=== PATIENT | male | born 1960 | race Caucasian/White ===

== ENCOUNTER 2019-12-28 18:25 | Emergency (ER) | payer OTHER ==
[~2019-12-28] VITALS: Ht 177.8 cm; Wt 104.3 kg
[~2019-12-28 18:25] MED LIST: ASPIR-LOW81 MG PO; CEPHALEXIN500 M1 PO; COREG12.5 MG PO; FLEXERIL5 MG PO; LIPITOR40 MG PO; LISINOPRIL2.5 MG PO; LISINOPRIL5 MG PO; MACROBID100 M1 PO; MOTRIN800 MG PO; PEPCID20 MG PO; PEPCID40 MG PO; PLAVIX75 M1 PO; PRILOSEC40 MG PO; TAMIFLU 75MG CA75 MG PO
[2019-12-28 19:46] LABS: BASO % 0.5 % (0.0-1.0); EOS % 0.4 % (1.0-4.0); HEMATOCRIT 40.7 % (42.0-52.0); HEMOGLOBIN 13.2 g/dl (14.0-18.0); LYMPH # 0.5 10*3/uL (1.3-4.4); LYMPH % 6.9 % (27.0-41.0); MEAN CELL VOLUME 85.7 fl (80.0-94.0); MEAN CORPUSCULAR HGB 27.8 pg (27.0-31.0); MEAN CORPUSCULAR HGB CONC 32.4 g/dl (33.0-37.0); MEAN PLATELET VOLUME 10.1 fl (9.6-12.3); MONO # 1.3 10*3/uL (0.1-1.0); NEUT # 5.7 10*3/uL (2.3-7.9); NEUT % 74.9 % (47.0-73.0); PLATELET COUNT AUTOMATED 333 10*3/uL (130-400); RED BLOOD COUNT 4.75 10*6/uL (4.50-5.90); RED CELL DISTRI WIDTH 13.2 % (0-14.5); WHITE BLOOD COUNT 7.7 10*3/uL (4.8-10.8)
[2019-12-28 20:02] LABS: ALBUMIN 3.1 gm/dl (3.1-4.5); ALKALINE PHOSPHATASE 78 U/L (45-117); BUN 15 mg/dl (7-24); CHLORIDE 103 mmol/L (98-107); CREATININE 1.08 mg/dL (0.70-1.30); POTASSIUM 4.3 mmol/L (3.5-5.1); SGOT/AST 17 IU/L (3-35); SGPT/ALT 24 U/L (12-78); SODIUM 134 mmol/L (136-145); TOTAL PROTEIN 6.7 gm/dL (6.4-8.2)
[2019-12-28 20:05] LABS: TROPONIN I < 0.015 ng/ml (<0.045)
[2019-12-28] MEDS ORDERED: ZITHROMAX250 MG PO (23:59)
== END 2019-12-29 01:41 | disposition home or self-care (01) ==
LOC: ED 18:25
PROVIDERS: Emergency Medicine Emergency Medical Services
DX: J18.9 Pneumonia, unspecified organism (principal); J10.1 Influenza due to other identified influenza virus with other respiratory manifestations; I25.2 Old myocardial infarction; M54.6 Pain in thoracic spine; K21.9 Gastro-esophageal reflux disease without esophagitis; E78.5 Hyperlipidemia, unspecified; Z79.899 Other long term (current) drug therapy; Z79.82 Long term (current) use of aspirin

== ENCOUNTER 2020-11-08 11:00 | Emergency (ER) | payer OTHER ==
[~2020-11-08 11:00] MED LIST changes: +ZITHROMAX250 MG PO
[2020-11-08 11:50] LABS: HEMATOCRIT 41.4 % (42.0-52.0); MEAN CELL VOLUME 83.8 fl (80.0-94.0); MEAN CORPUSCULAR HGB 27.7 pg (27.0-31.0); MEAN CORPUSCULAR HGB CONC 33.1 g/dl (33.0-37.0); MEAN PLATELET VOLUME 10.2 fl (9.6-12.3); PLATELET COUNT AUTOMATED 312 10*3/uL (130-400); RED BLOOD COUNT 4.94 10*6/uL (4.50-5.90); RED CELL DISTRI WIDTH 13.5 % (0-14.5); WHITE BLOOD COUNT 13.4 10*3/uL (4.8-10.8)
[2020-11-08 12:02] LABS: BUN 11 mg/dl (7-24); CHLORIDE 106 mmol/L (98-107); POTASSIUM 3.7 mmol/L (3.5-5.1); SODIUM 140 mmol/L (136-145)
[2020-11-08 12:16] LABS: PLATELET SUFFICIENCY NORMAL (NORMAL); TOTAL CELLS COUNTED 100 #CELLS
[2020-11-08] MEDS ORDERED: AUGMENTIN 875875 MG PO (16:02)
== END 2020-11-08 16:44 | disposition home or self-care (01) ==
LOC: ED 11:00
PROVIDERS: Emergency Medicine
DX: K12.2 Cellulitis and abscess of mouth (principal); K21.9 Gastro-esophageal reflux disease without esophagitis; E78.5 Hyperlipidemia, unspecified; Z79.899 Other long term (current) drug therapy; Z79.82 Long term (current) use of aspirin

== ENCOUNTER → 2021-08-04 | Outpatient (CLI) | payer SELFPAY ==
[~2021-08-04] MED LIST changes: +AUGMENTIN 875875 MG PO
== END | disposition home or self-care (01) ==
LOC: COVID19 17:22
PROVIDERS: ATTEND Family Medicine
DX: U07.1 COVID-19 (principal)